=== PATIENT | female | born 1960 | race Caucasian/White ===

== ENCOUNTER 2017-08-26 12:49 | Emergency (ER) | payer OTHER ==
[~2017-08-26] VITALS: Ht 160 cm; Wt 81.7 kg
[2017-08-26 14:28] VITALS: BP 136/88
== END 2017-08-26 14:29 | disposition home or self-care (01) ==
LOC: M.ERS 12:49
DX: M25.562 Pain in left knee (principal); M25.522 Pain in left elbow; M25.552 Pain in left hip; Z88.0 Allergy status to penicillin; Z88.1 Allergy status to other antibiotic agents; Z88.5 Allergy status to narcotic agent; W01.0XXA Fall on same level from slipping, tripping and stumbling without subsequent striking against object, initial encounter; Y93.89 Activity, other specified; Y92.89 Other specified places as the place of occurrence of the external cause; Y99.8 Other external cause status